=== PATIENT | female | born 1930 | race Caucasian/White ===

== ENCOUNTER → 2016-12-14 | Outpatient (CLI) | payer MEDICARE ==
[2016-12-14 08:11] LABS: HEMOGLOBIN A1c 6.2 % (4.8-5.6); POTASSIUM 4.8 mmol/L (3.5-5.1)
[2016-12-14 08:27] LABS: THYROID STIM HORMONE (HS) 1.93 uIU/ml (0.358-4.75)
[2016-12-15 06:10] LABS: MICRO ALBUMIN/CRE RATIO 83.2 (0.0-30.0)
== END | disposition home or self-care (01) ==
LOC: LAB 02:09
PROVIDERS: Family Medicine
DX: E11.9 Type 2 diabetes mellitus without complications (principal); E78.00 Pure hypercholesterolemia, unspecified

== ENCOUNTER → 2016-12-29 | Outpatient (CLI) | payer MEDICARE ==
[2016-12-29 10:28] LABS: BILIRUBIN NEGATIVE (NEGATIVE); BLOOD TRACE-LYSED (NEGATIVE); CLARITY SL CLOUDY (CLEAR); COLOR YELLOW (YELLOW); GLUCOSE NEGATIVE (NEGATIVE); KETONE NEGATIVE (NEGATIVE); LEUKO ESTERASE 2+ (NEGATIVE); NITRITE POSITIVE (NEGATIVE); PH 5.5 (5.0-9.0); PROTEIN NEGATIVE (NEGATIVE); SPECIFIC GRAVITY 1.015 (1.005-1.030); UROBILINOGEN 0.2 E.U./dl (0.2-1.0)
[2016-12-29 10:41] LABS: BACTERIA 3+; URINE REFLEX COMMENT YES (NO); WBC 31-40 wbc/hpf (0-5)
== END | disposition home or self-care (01) ==
LOC: LAB 02:45
PROVIDERS: Family Medicine
DX: N30.90 Cystitis, unspecified without hematuria (principal)

== ENCOUNTER → 2017-06-28 | Outpatient (CLI) | payer MEDICARE ==
[2017-06-28 10:25] LABS: CREATININE 1.24 mg/dL (0.55-1.02); POTASSIUM 4.3 mmol/L (3.5-5.1)
== END | disposition home or self-care (01) ==
LOC: LAB 01:19
PROVIDERS: Family Medicine
DX: E11.22 Type 2 diabetes mellitus with diabetic chronic kidney disease (principal); E78.00 Pure hypercholesterolemia, unspecified

== ENCOUNTER → 2017-12-25 | Outpatient (CLI) | payer MEDICARE ==
[2017-12-25 08:20] LABS: CREATININE 1.06 mg/dL (0.55-1.02)
[2017-12-25 08:29] LABS: THYROID STIM HORMONE (HS) 1.79 uIU/ml (0.358-4.75)
[2017-12-25 08:30] LABS: POTASSIUM 4.9 mmol/L (3.5-5.1)
[2017-12-26 11:10] LABS: CREATININE,URINE 69.8 mg/dL (Not Estab.)
== END | disposition home or self-care (01) ==
LOC: LAB 07:18
PROVIDERS: Family Medicine
DX: E11.9 Type 2 diabetes mellitus without complications (principal); E78.00 Pure hypercholesterolemia, unspecified

== ENCOUNTER → 2018-07-30 | Outpatient (CLI) | payer MEDICARE ==
[2018-07-30 11:10] LABS: CREATININE 1.39 mg/dL (0.55-1.02); POTASSIUM 5.8 mmol/L (3.5-5.1)
[2018-07-30 11:20] LABS: THYROID STIM HORMONE (HS) 1.58 uIU/ml (0.358-4.75)
[2018-07-31 11:07] LABS: MICRO ALBUMIN/CRE RATIO 24.4 (0.0-30.0)
== END | disposition home or self-care (01) ==
LOC: LAB 10:32
PROVIDERS: Family Medicine
DX: E11.9 Type 2 diabetes mellitus without complications (principal); E78.00 Pure hypercholesterolemia, unspecified

== ENCOUNTER → 2018-11-18 | Outpatient (CLI) | payer MEDICARE ==
[~2018-11-18] MED LIST: AMIODARONE HYD200 MG PO; CALTRATE 600 P1 EACH PO; LISINOPRIL40 MG PO; LUTEIN20 M2 PO; METFORMIN HCL500 M2 PO; NORVASC5 MG PO; PIOGLITAZONE HC15 MG PO; SYMB80 INH; THERA-M1 EACH PO; TOPROL XL25 MG PO; XARE20MG PO
== END | disposition home or self-care (01) ==
LOC: CARD 07:38
DX: I08.8 Other rheumatic multiple valve diseases (principal); I48.91 Unspecified atrial fibrillation; Z79.899 Other long term (current) drug therapy

== ENCOUNTER → 2018-12-13 | Outpatient (CLI) | payer MEDICARE | END | disposition home or self-care (01) | LOC: RESCLI 01:14 | DX: I48.91 Unspecified atrial fibrillation (principal); E11.9 Type 2 diabetes mellitus without complications; I10 Essential (primary) hypertension; J44.9 Chronic obstructive pulmonary disease, unspecified; E66.01 Morbid (severe) obesity due to excess calories; Z79.899 Other long term (current) drug therapy; Z88.8 Allergy status to other drugs, medicaments and biological substances ==

== ENCOUNTER → 2019-02-10 | Day surgery (SDC) | payer MEDICARE ==
[~2019-02-10] VITALS: Ht 162.5 cm; Wt 117.9 kg
[2019-02-10 10:16] VITALS: BP 161/84
[2019-02-10 11:24] VITALS: BP 109/52
[2019-02-10 11:39] VITALS: BP 104/48
[2019-02-10 11:55] VITALS: BP 142/70
== END | disposition home or self-care (01) ==
LOC: SDC 02-06 08:00
DX: I48.1 Persistent atrial fibrillation (principal); E11.9 Type 2 diabetes mellitus without complications; I49.9 Cardiac arrhythmia, unspecified; E55.9 Vitamin D deficiency, unspecified; I10 Essential (primary) hypertension; J44.9 Chronic obstructive pulmonary disease, unspecified; E66.01 Morbid (severe) obesity due to excess calories; Z68.41 Body mass index [BMI] 40.0-44.9, adult; Z79.899 Other long term (current) drug therapy; Z79.84 Long term (current) use of oral hypoglycemic drugs; Z98.890 Other specified postprocedural states

== ENCOUNTER → 2019-03-13 | Outpatient (CLI) | payer MEDICARE | END | disposition home or self-care (01) | LOC: RESCLI 01:51 | DX: E11.9 Type 2 diabetes mellitus without complications (principal); I10 Essential (primary) hypertension; R00.1 Bradycardia, unspecified; J44.9 Chronic obstructive pulmonary disease, unspecified; I48.91 Unspecified atrial fibrillation; M79.89 Other specified soft tissue disorders; Z79.899 Other long term (current) drug therapy; Z88.8 Allergy status to other drugs, medicaments and biological substances ==

== ENCOUNTER → 2019-04-16 | Outpatient (CLI) | payer MEDICARE | END | disposition home or self-care (01) | LOC: RESCLI 01:21 | DX: E11.9 Type 2 diabetes mellitus without complications (principal); I10 Essential (primary) hypertension; J44.9 Chronic obstructive pulmonary disease, unspecified; M79.89 Other specified soft tissue disorders; I48.21 Permanent atrial fibrillation; J45.909 Unspecified asthma, uncomplicated; E66.01 Morbid (severe) obesity due to excess calories; Z79.899 Other long term (current) drug therapy; Z88.8 Allergy status to other drugs, medicaments and biological substances ==

== ENCOUNTER → 2019-05-21 | Outpatient (CLI) | payer MEDICARE | END | disposition home or self-care (01) | LOC: RESCLI 01:35 | DX: I48.21 Permanent atrial fibrillation (principal); E11.9 Type 2 diabetes mellitus without complications; I10 Essential (primary) hypertension; J44.9 Chronic obstructive pulmonary disease, unspecified; M79.89 Other specified soft tissue disorders; R32 Unspecified urinary incontinence; E66.9 Obesity, unspecified; Z79.899 Other long term (current) drug therapy ==

== ENCOUNTER → 2019-07-15 | Outpatient (CLI) | payer MEDICARE ==
[2019-07-15 10:08] LABS: CHOLESTEROL 94 mg/dL (<200); HDL CHOLESTEROL 63 mg/dl (40-60); LDL CHOLESTEROL 13 mg/dL (9-159); SGOT/AST 11 IU/L (3-35); SGPT/ALT 15 U/L (12-78); TRIGLYCERIDES 92 mg/dl (<150); VLDL CHOLESTEROL 18 mg/dL (6-40)
== END | disposition home or self-care (01) ==
LOC: LAB 00:17
PROVIDERS: Internal Medicine Cardiovascular Disease
DX: I65.23 Occlusion and stenosis of bilateral carotid arteries (principal)

== ENCOUNTER → 2019-12-05 | Outpatient (CLI) | payer MEDICARE | END | disposition home or self-care (01) | LOC: RAD 01:49 | DX: Z78.0 Asymptomatic menopausal state (principal) ==

== ENCOUNTER → 2020-01-29 | Outpatient (CLI) | payer MEDICARE | END | disposition home or self-care (01) | LOC: RESCLI 03:50 | DX: E11.9 Type 2 diabetes mellitus without complications (principal); I10 Essential (primary) hypertension; I48.21 Permanent atrial fibrillation; E55.9 Vitamin D deficiency, unspecified; E66.01 Morbid (severe) obesity due to excess calories; R32 Unspecified urinary incontinence; M79.89 Other specified soft tissue disorders ==

== ENCOUNTER → 2020-07-20 | Outpatient (CLI) | payer MEDICARE | END | disposition home or self-care (01) | LOC: RESCLI 01:13 | PROVIDERS: ATTEND Student in an Organized Health Care Education/Training Program | DX: M79.89 Other specified soft tissue disorders (principal); R32 Unspecified urinary incontinence; E55.9 Vitamin D deficiency, unspecified; E11.9 Type 2 diabetes mellitus without complications; I10 Essential (primary) hypertension; I48.21 Permanent atrial fibrillation; Z79.899 Other long term (current) drug therapy ==

== ENCOUNTER → 2020-11-03 | Outpatient (CLI) | payer MEDICARE | END | disposition home or self-care (01) | LOC: RESCLI 01:20 | PROVIDERS: ATTEND Student in an Organized Health Care Education/Training Program | DX: M79.89 Other specified soft tissue disorders (principal); R32 Unspecified urinary incontinence; E55.9 Vitamin D deficiency, unspecified; E11.9 Type 2 diabetes mellitus without complications; I48.21 Permanent atrial fibrillation; I10 Essential (primary) hypertension; J44.9 Chronic obstructive pulmonary disease, unspecified; Z98.890 Other specified postprocedural states; Z79.01 Long term (current) use of anticoagulants; Z79.899 Other long term (current) drug therapy; Z90.710 Acquired absence of both cervix and uterus ==

== ENCOUNTER 2021-06-01 10:30 | Emergency (ER) | payer MEDICARE ==
[~2021-06-01] VITALS: Ht 160 cm; Wt 132.0 kg
== END 2021-06-01 14:55 | disposition home or self-care (01) ==
LOC: ED 10:30
DX: S86.911A Strain of unspecified muscle(s) and tendon(s) at lower leg level, right leg, initial encounter (principal); Z79.899 Other long term (current) drug therapy; W18.39XA Other fall on same level, initial encounter; Y93.89 Activity, other specified; Y92.89 Other specified places as the place of occurrence of the external cause; Y99.8 Other external cause status

== ENCOUNTER → 2022-04-04 | Outpatient (CLI) | payer MEDICARE | END | disposition home or self-care (01) | LOC: RESCLI 02:19 | PROVIDERS: ATTEND Internal Medicine | DX: R06.02 Shortness of breath (principal); E11.9 Type 2 diabetes mellitus without complications; I48.21 Permanent atrial fibrillation; E55.9 Vitamin D deficiency, unspecified; I10 Essential (primary) hypertension; J44.9 Chronic obstructive pulmonary disease, unspecified; G62.9 Polyneuropathy, unspecified; R32 Unspecified urinary incontinence; E78.5 Hyperlipidemia, unspecified; Z90.710 Acquired absence of both cervix and uterus; Z79.01 Long term (current) use of anticoagulants; Z79.899 Other long term (current) drug therapy ==